=== PATIENT | female | born 1995 | race African-American/Black ===

== ENCOUNTER 2022-05-02 21:59 | Emergency (ER) | payer MEDICAID, OTHER ==
[~2022-05-02] VITALS: Ht 162.6 cm; Wt 73.3 kg
[2022-05-03] MEDS ORDERED: DICYCLOMINE 10 MG/5 ML ORAL SYR PO STA (00:47)
[2022-05-03] MEDS ORDERED: KETOROLAC 60MG/2ML VIAL IM STA (00:47)
[2022-05-03 01:32] LABS: BASOPHILS % 0.4 % (0.0-2.0); EOSINOPHILS % 2.1 % (0.0-5.0); HEMATOCRIT. 41.7 % (36.0-48.0); HEMOGLOBIN. 13.9 g/dL (12.0-16.0); LYMPHOCYTES % 32.5 % (20.0-50.0); MEAN CORPUSCULAR VOLUME 96.1 fL (81.0-99.0); MEAN PLATELET VOLUME 8.4 fl (7.4-10.4); MONOCYTES % 7.2 % (2.0-8.0); NEUTROPHILS % 57.8 % (40.0-76.0); PLATELET 332 x1000/uL (130-400); RED BLOOD CELL COUNT 4.34 mill/uL (4.2-5.4); RED CELL DISTRIBUTION WIDTH 13.6 % (11.6-14.6)
[2022-05-03 01:47] LABS: CHLORIDE 106 mEq/L (98-107)
[2022-05-03] MEDS ORDERED: DICYCLOMINE 10 MG/5 ML ORAL SYR PO NR (05:15)
[2022-05-03] MEDS ORDERED: KETOROLAC 60MG/2ML VIAL IM NR (05:15)
[2022-05-03 05:43] VITALS: BP 127/87
[2022-05-03 07:32] LABS: CLARITY URINE CLOUDY (CLEAR); COLOR URINE YELLOW (YELLOW); KETONES URINE TRACE (NEGATIVE); LEUKOCYTE ESTERASE URINE NEGATIVE (NEGATIVE); NITRITE URINE NEGATIVE (NEGATIVE); OCCULT BLOOD URINE TRACE (NEGATIVE); PH URINE 7.5 (4.5-8.0); PROTEIN URINE NEGATIVE (NEGATIVE); SPECIFIC GRAVITY URINE 1.024 (1.005-1.030)
== END 2022-05-03 05:50 | disposition home or self-care (01) ==
LOC: ER 21:59
DX: K59.00 Constipation, unspecified (principal); K92.1 Melena; Z98.890 Other specified postprocedural states
CPT/HCPCS: 36415; 80053; 81003; 81025; 83690; 85025; 96372; 99283; J1885